=== PATIENT | male | born 1950 | race Caucasian/White ===

== ENCOUNTER 2020-06-06 08:10 | Outpatient (CLI) | payer MEDICARE ==
[~2020-06-06 08:10] MED LIST: APIX5TAB PO; ASPI-496 PO; ASPI-658 PO; DIGO250T3 PO; DIPH50LI PO; FURO20TA3 PO; HYDROCHLOROTH12.5 MG PO; LOSA100T14 PO; METO50TA82 PO; MULT-516 PO; MULT-717 PO; POTA20PA31 PO; POTA20TA14 PO; SIMV40TA20 PO; VIT D PO; Will bring list DOP; ZOLP10TA PO; [UNRECOGNIZED DRUG - REMARK]; [UNRECOGNIZED DRUG - REMARK]; [UNRECOGNIZED DRUG - REMARK]
[2020-06-06] MEDS ORDERED: GADOTERATE 10 MMOL/20 ML VIAL ONE (10:46)
== END 2020-06-06 23:59 | disposition home or self-care (01) ==
LOC: RAD 08:10 → EDSTATUS 08:15 → RAD 23:59
PROVIDERS: ATTEND Family Medicine
DX: S00.05XA Superficial foreign body of scalp, initial encounter (principal); G45.8 Other transient cerebral ischemic attacks and related syndromes; J34.1 Cyst and mucocele of nose and nasal sinus; G31.9 Degenerative disease of nervous system, unspecified; X58.XXXA Exposure to other specified factors, initial encounter; Y93.89 Activity, other specified; Y92.89 Other specified places as the place of occurrence of the external cause; Y99.8 Other external cause status
CPT/HCPCS: 70250; 70553; A9575

== ENCOUNTER → 2020-06-08 | Outpatient (CLI) | payer MEDICARE | END | disposition home or self-care (01) | LOC: CVU 12:27 | PROVIDERS: ATTEND Internal Medicine Cardiovascular Disease | DX: I65.23 Occlusion and stenosis of bilateral carotid arteries (principal); I11.9 Hypertensive heart disease without heart failure | CPT/HCPCS: 93306; 93880 ==